=== PATIENT | female | born 1945 | race Caucasian/White ===

== ENCOUNTER → 2021-03-09 | Outpatient (CLI) | payer MEDICARE, BC ==
[~2021-03-09] MED LIST: ISOVUE-370 76% 100ML VIAL As Ordered ONE
--- NOTE | 2021-03-09 15:08 | REP ---
INDICATION: F/U LUNG OPACITIES COMPARISON: Multiple latest 03/03/2020 TECHNIQUE: Standard helical technique after the intravenous administration of 100 cc Isovue 370 FINDINGS: There is no mediastinal or hilar adenopathy. There are no pleural or pericardial effusions. The imaged upper abdomen and imaged osseous structures are stable. Evaluation lung mo shows stable appearing biapical pleuroparenchymal scarring. Tree in bud right upper lobe densities seen previously are stable. Other more diffusely scattered tree-in-bud type densities are again seen status quo. The pleural based lingular density has gotten smaller. There is cylindrical bronchiectasis which appears stable. No new abnormal nodules, masses, or opacities have developed. IMPRESSION: Chronic lung field changes as described above. There is no evidence of acute disease. <Electronically signed by Gian Austin > 03/09/21 [id number]
== END ==
LOC: M RAD 12:47
PROVIDERS: ATTEND Internal Medicine
DX: R91.8 Other nonspecific abnormal finding of lung field (principal)
CPT/HCPCS: 71260; Q9967

== ENCOUNTER → 2021-06-10 | Outpatient (REF) | payer MEDICARE, BC | LOC: M LAB REF 13:42 | PROVIDERS: ATTEND Internal Medicine | DX: R35.0 Frequency of micturition (principal) ==

== ENCOUNTER → 2022-01-25 | Outpatient (REF) | payer MEDICARE, BC ==
[2022-01-26 08:48] LABS: VITAMIN B12 LEVEL 249 PG/ML
== END ==
LOC: M LAB REF 16:17
PROVIDERS: ATTEND Internal Medicine
DX: M85.9 Disorder of bone density and structure, unspecified (principal)

== ENCOUNTER → 2022-04-04 | Outpatient (CLI) | payer MEDICARE, BC | LOC: M WHC 09:53 | PROVIDERS: ATTEND Internal Medicine | DX: M85.851 Other specified disorders of bone density and structure, right thigh (principal); M85.852 Other specified disorders of bone density and structure, left thigh ==

== ENCOUNTER → 2024-12-27 | Outpatient (CLI) | payer MEDICARE, BC | LOC: M WHC 09:17 | PROVIDERS: ATTEND Internal Medicine | DX: M81.0 Age-related osteoporosis without current pathological fracture (principal) ==